=== PATIENT | male | born 1990 ===

== ENCOUNTER 2023-12-22 08:59 | Outpatient (AMB) | payer OTHER, SELFPAY ==
--- NOTE | 2023-12-22 08:55 | HO.NEPHOV_ITS ---
Vital Signs 12/22/23 08:56 Height 6 ft 1 in Weight 221 lb BMI 29.2 BP 112/70 Blood Pressure Location Lt brachial Position Sitting Pulse 76 Pulse Source Pulse Oximeter Pulse Oximetry (%) 96 Oxygen Delivery Method Room Air Intake Visit Reasons: Abnormal results of Kidney function/ LVM Mason Tender Restoration Labor Required: No Accompanied by: Self / Same As Patient Allergies cat dander Allergy (Unknown, Verified 12/22/23 09:01) Rash dog dander Allergy (Unknown, Verified 12/22/23 09:01) Rash pollen Allergy (Unknown, Uncoded 12/17/23 15:30) Rash HPI Comments Details: Rashaun is a pleasant 33-year-old man who has been enjoying reasonably good health. 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 Recent serum creatinine was 1.5 mg/dL and hence this referral. He also Ca takes creatine supplement He admits to taking plenty of vitamin-D. [facility] Family History Father Prostate cancer Mother Sickle cell disease Anxiety and depression Attempted suicide Maternal Grandmother Alzheimer dementia Diabetes Review of Systems Const Denies fever(s) and Denies weight loss Card Denies chest pain Resp Denies cough and Denies hemoptysis GI Denies abdominal pain, Denies diarrhea and Denies nausea Musc Denies back pain Neuro Denies focal weakness Physical Exam Vital Signs: Last Vital Signs Pulse 76 12/22/23 08:56 BP 112/70 12/22/23 08:56 Pulse Ox 96 12/22/23 08:56 Oxygen Delivery Method Room Air 12/22/23 08:56 BMI result Body Mass Index 29.2 Const General: comfortable; No acute distress Orientation/consciousness: patient oriented x3 Eyes General: appearance normal, both eyes and all related structures Visual Sotelo: normal visual sotelo by confrontation Neck Neck: Yes supple and Yes no JVD Resp Effort & Inspection: normal respiratory effort and respiratory effort not decr eased Auscultation: rhonchi Cardio Palpation: no palpable S3 and no palpable S4 Heart sounds: no rubs GI Inspection: Yes normal to inspection Palpation (GI): Soft to palpation Percussion: Yes normal to percussion Auscultation: normal bowel sounds General: Yes no CVA tenderness Back/Spine/Pelvis Back: no CVA tenderness Skin General skin exam: no petechiae and no purpura Neuro General: patient oriented x3 and no focal motor deficits Extrem General: No clubbing and No edema Results Reviewed Results Reviewed: Serum creatinine 1.3 Calcium 10.3 Urine protein creatinine ratio unremarkable Nephrology Results: No Data to Display Assessment & Plan Assessment & Plan (1) Elevated serum creatinine: Code(s): R79.89 - Other specified abnormal findings of blood chemistry Category: Medical (2) Hypercalcemia: Code(s): E83.52 - Hypercalcemia Category: Medical Plan Young healthy muscular man with a serum creatinine 1.5 mg/dL. Increased serum creatinine may be due to increased muscle mass as well as intake of creatinine Check 24 hour urine collection for creatinine clearance. Encouraged him to increase fluid intake. Mild hypercalcemia this may be due to excessive vitamin-D intake. I will check vitamin-D levels and repeat calcium levels along with PTH. Further workup will be based on the outcome of the above baseline investigations Orders: Orders Creatinine, 24 Hr Group Today E83.52 - Hypercalcemia, R79.89 - Other specified abnormal findings of blood chemistry Parathyroid Hormone Related Pr Today E83.52 - Hypercalcemia, R79.89 - Other specified abnormal findings of blood chemistry Vitamin D 25-OH (D2 and D3) Today E83.52 - Hypercalcemia, R79.89 - Other specified abnormal findings of blood chemistry Creatinine Clearance Urine 24U Today E83.52 - Hypercalcemia, R79.89 - Other specified abnormal findings of blood chemistry Basic Metabolic Panel Today E83.52 - Hypercalcemia, R79.89 - Other specified abnormal findings of blood chemistry Coding Level of Care Code New Pt Level 4 (58178) Diagnoses Elevated serum creatinine R79.89 Hypercalcemia E83.52
[2023-12-22 08:56] VITALS: BP 112/70; PULSE 76; O2SAT 96; BMI 29.2
== END 2023-12-22 09:17 | disposition home or self-care (01) ==
PROVIDERS: PCP Hospitalist; Referring Provider Hospitalist; Visit Provider Internal Medicine Hypertension Specialist
DX: R79.89 Other specified abnormal findings of blood chemistry (principal); E83.52 Hypercalcemia
CPT/HCPCS: 99204

== ENCOUNTER → 2023-12-22 08:59 | Outpatient (BNVA) | payer OTHER, SELFPAY | PROVIDERS: PCP Hospitalist; Referring Provider Hospitalist; Visit Provider Internal Medicine Hypertension Specialist ==

== ENCOUNTER 2023-12-29 14:50 | Outpatient (REF) | payer OTHER, SELFPAY ==
[2023-12-29 18:43] LABS: Creatinine, mg/dL 51.28; Creatinine, mg/dL 52.29
[2023-12-29 19:24] LABS: Creatinine, 24Hr Urine 1.6 G/Day (1.0-2.0); Total Volume 24 Hour Urine 3100 mL
[2023-12-29 19:25] LABS: Creatinine, 24Hr Urine 1.6 G/Day (1.0-2.0); Total Volume 24 Hour Urine 3100 mL
[2023-12-30 12:59] LABS: Creatinine (CrCl) 1.44 mg/dL (0.5-1.4); Creatinine Clearance 76.6 mL/min (85-125)
== END 2023-12-29 14:51 | disposition home or self-care (01) ==
LOC: HO.HKASLDS 14:50
PROVIDERS: Visit Provider Internal Medicine Hypertension Specialist
DX: E83.52 Hypercalcemia (principal); R79.89 Other specified abnormal findings of blood chemistry
CPT/HCPCS: 82570; 82575

== ENCOUNTER 2023-12-30 10:29 | Outpatient (REF) | payer OTHER, SELFPAY ==
[2023-12-30 12:54] LABS: Anion Gap 10 (12-20); Blood Urea Nitrogen 33 mg/dL (9-16); Calcium 10.1 mg/dL (8.4-10.2); Carbon Dioxide 29 mmol/L (22-29); Chloride 105 mmol/L (96-108); Estimated Glomerular Filt Rate 56; Glucose Random 80 mg/dL (60-115); Potassium 4.3 mmol/L (3.3-5.1); Sodium 140 mmol/L (135-145)
[2024-01-03 15:28] LABS: Vitamin D 25-OH, D2 <4 ng/mL; Vitamin D 25-OH, D3 74 ng/mL; Vitamin D 25-OH, Total 74 ng/mL (30-100)
[2024-01-11 00:57] LABS: Parathyroid Hormone Related Pr 11 pg/mL (11-20)
== END 2023-12-30 10:30 | disposition home or self-care (01) ==
LOC: HO.LAB 10:29
PROVIDERS: Visit Provider Internal Medicine Hypertension Specialist
DX: E83.52 Hypercalcemia (principal); R79.89 Other specified abnormal findings of blood chemistry
CPT/HCPCS: 36415; 80048; 82306; 83519

== ENCOUNTER 2024-01-05 11:19 | Outpatient (AMB) | payer OTHER, SELFPAY ==
[2024-01-05 11:20] VITALS: BP 126/72; PULSE 75; O2SAT 96; BMI 30.1
--- NOTE | 2024-01-05 11:20 | HO.NEPHOV ---
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 Recent serum creatinine was 1.5 mg/dL and hence this referral. He also Ca takes creatine supplement He admits to taking plenty of vitamin-D. [facility] Family History Father Prostate cancer Mother Sickle cell disease Anxiety and depression Attempted suicide Maternal Grandmother Alzheimer dementia Diabetes Physical Exam Vital Signs: Last Vital Signs Pulse 75 01/05/24 11:20 BP 126/72 01/05/24 11:20 Pulse Ox 96 01/05/24 11:20 Oxygen Delivery Method Room Air 01/05/24 11:20 BMI result Body Mass Index 30.1 Results Reviewed Nephrology Results: Sodium 140 mmol/L (135-145) 12/30/23 Potassium 4.3 mmol/L (3.3-5.1) 12/30/23 Chloride 105 mmol/L (96-108) 12/30/23 Carbon Dioxide 29 mmol/L (22-29) 12/30/23 BUN 33 mg/dL (9-16) H 12/30/23 Creatinine 1.44 mg/dL (0.5-1.4) H 12/30/23 Calcium 10.1 mg/dL (8.4-10.2) 12/30/23 Assessment & Plan Assessment & Plan (1) Elevated serum creatinine: Code(s): R79.89 - Other specified abnormal findings of blood chemistry Category: Medical (2) Hypercalcemia: Code(s): E83.52 - Hypercalcemia Category: Medical Plan Young healthy muscular man with a serum creatinine 1.5 mg/dL. Increased serum creatinine may be due to increased muscle mass as well as intake of creatinine 24 hour urine collection for creatinine clearance was 76 cm. Encouraged him to increase fluid intake. Mild hypercalcemia this may be due to excessive vitamin-D intake. Repeat calcium and intake PTH was normal Orders: Orders Basic Metabolic Panel 6 Months - Other specified abnormal findings of blood chemistry UA and rflx microscopic 6 Months - Other specified abnormal findings of blood chemistry Total Protein Urine Random 6 Months - Other specified abnormal findings of blood chemistry Creatinine Urine 6 Months - Other specified abnormal findings of blood chemistry Coding Level of Care Code Est Pt Level 4 (59053) Diagnoses Elevated serum creatinine Hypercalcemia E83.52
== END 2024-01-05 11:35 | disposition home or self-care (01) ==
PROVIDERS: PCP Hospitalist; Visit Provider Internal Medicine Hypertension Specialist
DX: R79.89 Other specified abnormal findings of blood chemistry (principal); E83.52 Hypercalcemia
CPT/HCPCS: 99214

== ENCOUNTER → 2024-01-05 11:19 | Outpatient (BNVA) | payer OTHER, SELFPAY | PROVIDERS: PCP Hospitalist; Visit Provider Internal Medicine Hypertension Specialist ==